=== PATIENT | female | born 1965 | race Caucasian/White ===

== ENCOUNTER 2020-04-23 00:33 | Outpatient (CLI) | payer BC, SELFPAY ==
[2020-04-23 18:42] LABS: SARS-CoV-2 RNA PCR Negative
== END 2020-04-23 00:34 | disposition home or self-care (01) ==
LOC: ANHCOVIDDT 00:33
PROVIDERS: PCP Physician Assistant; Visit Provider Internal Medicine Gastroenterology
DX: Z01.812 Encounter for preprocedural laboratory examination (principal); Z20.828 Contact with and (suspected) exposure to other viral communicable diseases
CPT/HCPCS: 87635; C9803; U0003

== ENCOUNTER 2020-04-25 01:55 | Day surgery (SDC) | payer BC, SELFPAY ==
[2020-04-18 09:35] VITALS: BMI 28.8
[2020-04-25 08:31] VITALS: BP 129/86; PULSE 84; RESP 18; TEMP 36.9; O2SAT 97
[2020-04-25] MEDS: LACTATED RINGERS 1,000 ML 150 ML IV CONT (08:42)
--- NOTE | 2020-04-25 08:48 | WPDANESEPPF ---
Anes - Initial Pre Proc Eval Procedure: Operation Date: 04/25/20 09:30 Proposed Procedures p Screening Colonoscopy - Royce Burrell MD Date/Time: 04/25/20 08:48 Surgeon: Royce Burrell MD Pre Op Diagnosis: Neoplasm Screening Patient Data Age: 55 Gender: F Height: 5 ft 4 in Weight: 75.7 kg Last Vital Signs Temp 98.5 F 04/25/20 08:31 Pulse 84 04/25/20 08:31 Resp 18 04/25/20 08:31 BP 129/86 04/25/20 08:31 Pulse Ox 97 04/25/20 08:31 Allergies Allergy/AdvReac Type Severity Reaction Status Date / Time No Known Allergies Allergy Verified 04/25/20 08:30 Home Medications Medication Instructions Recorded Confirmed Type aspirin [Adult Low Dose Aspirin] 81 mg PO DAILY 04/18/20 04/18/20 History eszopiclone 2 mg PO HS PRN 04/18/20 04/18/20 History loratadine-pseudoephedrine 1 tablet PO PRN PRN 04/18/20 04/18/20 History [Claritin-D 12 Hour] pravastatin 20 mg PO DAILY 04/18/20 04/18/20 History Patient hx anesthesia problems: none Family hx anesthesia problems: none PMFSH Past Medical History Medical History (Updated 04/25/20 @ 08:47 by Ray Pat MD) Depression Hypertension no longer takes medications Anes - Eval Final PreProcedure Day of Procedure 04/25/20 08:48 Patient weight: normal Heart: regular rate and rhythm Lungs: clear to auscultation Airway: Mallampati scale class II Neurological: alert and oriented Last oral intake: >/= 8 hours ASA classification: II Emergent: no Anesthetic plan: proceed Anesthesia type and monitoring: general GIVS and standard monitoring Informed Consent: The patient's anesthetic plan and its attendant risks and benefits were discussed with the patient/family/POA. Questions were solicited and answers provided to the satisfaction of the patient/family/POA.
--- NOTE | 2020-04-25 09:05 | WPDGICN ---
Assessment and Plan Assessment and plan (1) Encounter for screening colonoscopy: Code(s): Z12.11 - Encounter for screening for malignant neoplasm of colon Status: Acute Assessment and Plan: Patient's sister is had colon cancer. Plan is for colonoscopy at this time. Consider follow-up colonoscopy at 5 year intervals otherwise. (2) Encounter for colonoscopy in patient with family history of colon cancer: Code(s): Z12.11 - Encounter for screening for malignant neoplasm of colon; Z80.0 - Family history of malignant neoplasm of digestive organs Status: Acute GI Consult Note Consult date/time: 04/25/20 09:05 HPI: Cass Cox is a 55 year old female seen at request of [facility]. Patient presents for screening colonoscopy. Her last exam was 10 years ago. Her current weight appetite bowel movements are normal. She denies abdominal pain. Her bowel habits are regular. She denies any bleeding. Family history is significant his sister has had colon polyps at least 1 other sibling has had colon polyps. Review of Systems Review of Systems: All systems reviewed & are unremarkable except as noted in HPI and below PMFSH Past Medical History Medical History Depression Hypertension no longer takes medications Meds Home Medications and Allergies Home Medications Medication Instructions Recorded Confirmed Type aspirin [Adult Low Dose Aspirin] 81 mg PO DAILY 04/18/20 04/18/20 History eszopiclone 2 mg PO HS PRN 04/18/20 04/18/20 History loratadine-pseudoephedrine 1 tablet PO PRN PRN 04/18/20 04/18/20 History [Claritin-D 12 Hour] pravastatin 20 mg PO DAILY 04/18/20 04/18/20 History Allergies Allergy/AdvReac Type Severity Reaction Status Date / Time No Known Allergies Allergy Verified 04/25/20 08:30 Vital Signs Vital Signs - 24 hr 04/25/20 08:31 Temperature 98.5 F Pulse Rate 84 Respiratory Rate 18 Blood Pressure 129/86 Pulse Oximetry 97 Exam Narrative: Exam Narrative: Physical exam reveals patient to be alert. Vital signs stable. HEENT exam unremarkable. Lungs are clear to auscultation and percussion. Heart is without murmur or extra sounds. Abdominal exam bowel sounds are present soft nontender with no hepatosplenomegaly. Digital external rectal exam normal.
[2020-04-25 09:35] VITALS: BP 153/79; PULSE 82; RESP 19; O2SAT 100
[2020-04-25 09:41] VITALS: BP 145/87; PULSE 86; RESP 19; O2SAT 100
[2020-04-25 09:51] VITALS: BP 148/90; PULSE 86; RESP 19; O2SAT 100
== END 2020-04-25 10:10 | disposition home or self-care (01) ==
PROVIDERS: PCP Physician Assistant; Visit Provider Internal Medicine Gastroenterology
PROC: 0DJD8ZZ Inspection of Lower Intestinal Tract, Via Natural or Artificial Opening Endoscopic (ICD-10-PCS; CPT 45378; principal; 2020-04-25 09:30)
DX: Z12.11 Encounter for screening for malignant neoplasm of colon (principal); K64.8 Other hemorrhoids; Z80.0 Family history of malignant neoplasm of digestive organs; Z83.71 Family history of colonic polyps; I10 Essential (primary) hypertension; F32.9 Major depressive disorder, single episode, unspecified; Z79.82 Long term (current) use of aspirin; Z79.899 Other long term (current) drug therapy
CPT/HCPCS: G0105; J2704; J7120